=== PATIENT | female | born 1995 | race Two or more races ===

== ENCOUNTER 2018-02-05 16:18 | Emergency (ER) | payer SELFPAY ==
[~2018-02-05] VITALS: Ht 162.6 cm; Wt 79.4 kg
[~2018-02-05 16:18] MED LIST: ASPI81CH43; DIVA500T53; NORPTMEDS CO
[2018-02-05 18:11] VITALS: BP 150/86
[2018-02-05] MEDS ORDERED: HYDROcodone-ACET 10/325MG TAB PO ONE (20:30)
== END 2018-02-05 20:49 | disposition home or self-care (01) ==
LOC: ER 16:24
DX: S00.83XA Contusion of other part of head, initial encounter (principal); M62.838 Other muscle spasm; Z88.0 Allergy status to penicillin; Z88.8 Allergy status to other drugs, medicaments and biological substances; Z90.49 Acquired absence of other specified parts of digestive tract; X58.XXXA Exposure to other specified factors, initial encounter; Y93.89 Activity, other specified; Y92.89 Other specified places as the place of occurrence of the external cause; Y99.8 Other external cause status
CPT/HCPCS: 70140; 70450; 73030

== ENCOUNTER 2022-06-29 09:53 | Emergency (ER) | payer BC ==
[~2022-06-29] VITALS: Ht 160 cm; Wt 88.6 kg
[~2022-06-29 09:53] MED LIST changes: +DIVA500T2; -DIVA500T53
[2022-06-29 12:50] LABS: Calcium 9.2 mg/dL (8.5-10.1); Potassium 4.3 mmol/L (3.5-5.1)
[2022-06-29 12:53] LABS: BUN/Creatinine Ratio 12.2
[2022-06-29 12:55] LABS: Bilirubin, Total 0.4 mg/dL (0.2-1.0); Total Protein 7.3 g/dL (6.4-8.2)
[2022-06-29 13:20] LABS: Basophils # (auto) 0.1 10 ^3/uL (0-0.2); Basophils % (auto) 0.5 % (0.0-2.0); Eosinophils # (auto) 0.1 10 ^3/uL (0-0.8); Hematocrit 44.9 % (36.0-46.0); Hemoglobin 14.6 g/dL (12.2-16.2); Lymphocytes # (auto) 2.6 10 ^3/uL (0.4-5.4); Lymphocytes % (auto) 19.1 % (10.0-50.0); Mean Corpuscular Hemoglobin 29.1 pg (28.0-32.0); Mean Corpuscular Hgb Conc. 32.6 g/dL (32.0-36.0); Mean Corpuscular Volume 89.3 fL (80.0-100.0); Monocytes # (auto) 0.7 10 ^3/uL (0-1.3); Neutrophils # (auto) 10.3 10 ^3/uL (1.6-8.6); Neutrophils % (auto) 74.4 % (37.0-80.0); Red Blood Cells 5.02 10^6/uL (4.0-5.20); Red Cell Distribution Width 12.8 % (11.8-14.3); White Blood Cell 13.9 10^3/uL (4.4-10.8)
[2022-06-29] MEDS ORDERED: TRAM-297 PO (16:03)
[2022-06-29 17:17] VITALS: BP 130/94
== END 2022-06-29 17:46 | disposition home or self-care (01) ==
LOC: ER 09:53
DX: M79.605 Pain in left leg (principal); R07.89 Other chest pain; R06.02 Shortness of breath; Z90.49 Acquired absence of other specified parts of digestive tract; Z90.89 Acquired absence of other organs; I25.2 Old myocardial infarction; Z88.0 Allergy status to penicillin; Z88.8 Allergy status to other drugs, medicaments and biological substances
CPT/HCPCS: 36415; 80053; 84484; 85025; 85379; 93971